=== PATIENT | female | born 1980 | race American Indian/Alaskan Native ===

== ENCOUNTER 2018-07-20 15:28 | Emergency (ER) | payer OTHER ==
[2018-07-20 15:37] VITALS: BMI 39.9
[2018-07-20 15:40] VITALS: O2SAT 98
--- NOTE | 2018-07-20 17:35 | C.PDOC ---
History Of Present Illness 37 year old female presents to the ED complaining of bodyaches for the past 2 days. Patient complains of discomfort in her lower back, breasts, and legs. She also admits to coughing for the past few days. States yesterday she woke up with fever, chills, and congestion. Patient was seen at [facility] [place], given IV fluids and toradol, and given nothing to go home with. She now complains of worsening back pain, states she has no pain medication at home. Patient awoke today feeling worse, prompting her to come to the ED. Otherwise she denies any nausea, vomiting, diarrhea, or difficulty breathing. She reports her mom had the flu last week. Patient did not receive a flu vaccine this season. Temp on arrival is 100.1 HPI: Influenza Time Seen by Provider: 07/20/18 15:48 Chief Complaint: Flu-like Symptoms Chief Complaint (Provider): Flu-like Symptoms History Per: Patient Exam Limitations: no limitations Onset/Duration Of Symptoms: Days (x 2) Symptoms include: fever, bodyaches, cough, nasal congestion Sick Contacts (Context): Family Member(s) (Mother) Hx Influenza Vaccination: No Past Medical History Reviewed: Historical Data, Nursing Documentation, Vital Signs Vital Signs: Last Vital Signs Temp 100.1 F H 07/20/18 15:39 Pulse 103 H 07/20/18 15:39 Resp 20 07/20/18 15:39 BP 138/82 07/20/18 15:39 Pulse Ox 98 07/20/18 15:39 - Medical History PMH: No Chronic Diseases Surgical History: No Surg Hx Family History: States: No Known Family Hx - Social History Hx Alcohol Use: Yes Hx Substance Use: No - Immunization History Hx Tetanus Toxoid Vaccination: No Hx Influenza Vaccination: No Hx Pneumococcal Vaccination: No Review Of Systems Constitutional: Positive for: Fever, Chills, Other (Bodyaches) ENT: Positive for: Nose Discharge, Nose Congestion Cardiovascular: Negative for: Chest Pain Respiratory: Positive for: Cough. Negative for: Shortness of Breath Gastrointestinal: Negative for: Nausea, Vomiting, Diarrhea Musculoskeletal: Positive for: Back Pain Skin: Negative for: Rash Neurological: Negative for: Weakness, Headache Physical Exam - Physical Exam Appears: Non-toxic, Other (Tearful, appears upset) Skin: Warm, Dry, No Rash Head: Atraumatic, Normacephalic Eye(s): bilateral: Normal Inspection, PERRL, EOMI Ear(s): Bilateral: Normal Oral Mucosa: Moist Neck: Normal ROM Chest: Symmetrical Cardiovascular: Rhythm Regular, No Murmur Respiratory: Normal Breath Sounds, No Rales, No Rhonchi, No Wheezing Gastrointestinal/Abdominal: Soft, No Tenderness, No Distention Back: No Vertebral Tenderness, No Decreased ROM, Paraspinal Tenderness (diffuse tenderness across lumbar region) Extremity: Bilateral: Atraumatic, Normal Color And Temperature, Normal ROM Neurological/Psych: Oriented x3, Normal Speech Gait: Steady Medical Decision Making Medical Decision Making: Impression: Flu-like symptoms Initial Plan: --Tylenol 975 mg PO --Motrin 600 mg PO --Tamiflu 75 mg PO Counseled regarding diagnosis of flu-like illness. Patient will be discharged home with Rx for tamiflu, ibuprofen, and tessalon perles. - ECG O2 Sat by Pulse Oximetry: 98 (RA) Pulse Ox Interpretation: Normal Disposition Counseled Patient/Family Regarding: Diagnosis, Need For Followup, Rx Given - Disposition Referrals: Gloria Cain MD [Medical Doctor] - Disposition: HOME/ ROUTINE Disposition Time: 17:33 Condition: STABLE Prescriptions: Benzonatate [Tessalon Perles] 200 mg PO TID #30 sgl Ibuprofen [Motrin] 600 mg PO TID #15 tab Oseltamivir Cap [Tamiflu] 1 cap PO BID #10 cap Instructions: Flu, Adult (DC) Forms: General Discharge Instructions, [facility] ([place]), Work Excuse - POA Present On Arrival: None - Clinical Impression Clinical Impression: Influenza-like illness - Scribe Statement The provider has reviewed the documentation as recorded by the Jairo Darling Provider Attestation: All medical record entries made by the Scribe were at my direction and personally dictated by me. I have reviewed the chart and agree that the record accurately reflects my personal performance of the history, physical exam, medical decision making, and the department course for this patient. I have also personally directed, reviewed, and agree with the discharge instructions and disposition.
[2018-07-20 17:53] VITALS: BP 132/86; PULSE 92; RESP 16; TEMP 99.5
== END 2018-07-20 17:53 | disposition home or self-care (01) ==
LOC: C.ER 15:28
DX: J11.1 Influenza due to unidentified influenza virus with other respiratory manifestations (principal)